=== PATIENT | female | born 2005 | race Caucasian/White ===

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

== ENCOUNTER 2025-03-04 12:42 | Outpatient (CLI) | payer OTHER, SELFPAY | END 2025-03-04 12:43 | disposition home or self-care (01) | PROVIDERS: Visit Provider Physician Assistant | DX: R42 Dizziness and giddiness (principal); R53.83 Other fatigue; T14.8XXA Other injury of unspecified body region, initial encounter | CPT/HCPCS: 80053; 82248; 85610; 85730 ==